=== PATIENT | female | born 1990 | race Two or more races ===

== ENCOUNTER 2018-03-06 22:06 | Emergency (ER) | payer MEDICAID ==
[~2018-03-06] VITALS: Ht 165.1 cm; Wt 72.6 kg
[2018-03-06 22:15] VITALS: BP 116/81
[2018-03-06 23:10] LABS: Urine Bacteria NONE SEEN /hpf (None Seen); Urine Blood 1+ /uL (Negative); Urine Specific Gravity 1.003 (1.001-1.035); Urine WBC 1 /hpf (0 - 5)
== END 2018-03-07 00:58 | disposition left against medical advice (07) ==
LOC: ER 22:06
DX: R51 Headache (principal); R20.0 Anesthesia of skin; Z53.21 Procedure and treatment not carried out due to patient leaving prior to being seen by health care provider
CPT/HCPCS: 70450; 81001; 81025; 82962